=== PATIENT | male | born 1990 | race Caucasian/White ===

== ENCOUNTER 2018-07-07 21:06 | Emergency (ER) | payer BC ==
[2018-07-07] MEDS ORDERED: Diph,Pert(Acell),Tet Vac 0.5 ML SYR IM ONE (21:32)
[2018-07-07] MEDS ORDERED: AMOXICILLIN/POTASSIUM CLAV 875MG/125MG TABLET PO ONE (21:32)
--- NOTE | 2018-07-07 21:34 | Emergency Department Record ---
History of Present Illness - General Chief Complaint: Animal Bite Stated Complaint: RT HAND PAIN Time Seen by Provider: 07/07/18 21:28 Source: Patient Mode of Arrival: Ambulatory Limitations: No limitations - History of Present Illness Initial Comments: 28 yo male presents to ED for evaluation of swelling and pain to the dorsum of the right hand. Patient reports that his dog bite him on the hand approximately 48 hours ago, significant other placed steri-strip over the puncture wound of the hand. Patient reports increased swelling today, reports mild erythema, denies fevers, chills, or systemic symptoms. Patient denies health problems at his baseline, does report that the dog's immunizations are UTD and can be monitored. Patient's last tetanus > 5 years. MD Complaint: Animal bite Onset/Timin -: Hour(s) Right: Hand Animal: Dog Description: Household pet Mechanism: Bite Pain Description: Dull Context: Playing with animal Associated Symptoms: None - Related Data Patient Tetanus UTD (within 5 yrs): No Previous Rx's Medication Instructions Recorded Amoxicillin/Potassium Clav 1 tab PO BID #19 tab 07/07/18 [Augmentin 875-125 Tablet] Allergies Allergy/AdvReac Type Severity Reaction Status Date / Time chlorpheniramine AdvReac VOMITING Verified 07/07/18 21:17 [From Triaminic Cold and Cough] dextromethorphan AdvReac VOMITING Verified 07/07/18 21:17 [From Triaminic Cold and Cough] pseudoephedrine AdvReac VOMITING Verified 07/07/18 21:17 [From Triaminic Cold and Cough] Review of Systems Constitutional: Denies: Chills, Fever, Malaise, Night sweats Eyes: Denies: Eye discharge, Eye pain ENT: Denies: Congestion, Ear pain, Epistaxis Respiratory: Denies: Cough, Dyspnea Cardiovascular: Denies: Chest pain, Dyspnea on exertion Endocrine: Denies: Fatigue, Heat or cold intolerance Gastrointestinal: Denies: Abdominal pain, Nausea, Vomiting Genitourinary: Denies: Incontinence, Retention Musculoskeletal: Reports: Myalgia. Denies: Arthralgia, Back pain Skin: Reports: Change in color. Denies: Bruising Neurological: Denies: Abnormal gait, Confusion, Headache, Seizure Psychiatric: Denies: Anxiety Hematological/Lymphatic: Denies: Anemia, Blood Clots Physical Exam - General General Appearance: Alert, Oriented x3, Cooperative, Mild distress Limitations: No limitations - Head Head exam: Atraumatic, Normocephalic, Normal inspection Head exam detail: negative: Abrasion, Contusion, Nichols's sign, General tenderness, Hematoma, Laceration - Eye Eye exam: Normal appearance. negative: Conjunctival injection, Periorbital swelling, Periorbital tenderness, Scleral icterus - ENT Ear exam: negative: Auricular hematoma, Auricular trauma Nasal Exam: negative: Active bleeding, Discharge, Dried blood, Foreign body Mouth exam: negative: Drooling, Laceration, Muffled voice, Tongue elevation - Neck Neck exam: Normal inspection. negative: Meningismus, Tenderness - Respiratory Respiratory exam: Normal lung sounds bilaterally. negative: Rales, Respiratory distress, Rhonchi, Stridor - Cardiovascular Cardiovascular Exam: Regular rate, Normal rhythm, Normal heart sounds - GI/Abdominal GI/Abdominal exam: Soft. negative: Rebound, Rigid, Tenderness - Rectal Rectal exam: Deferred - exam: Deferred - Extremities Extremities exam: Tenderness, Other (Mild TTP, erythema, and STS over rj dorsum of the right hand measuring approximately 5 cm in diameter.). negative: Calf tenderness, Pedal edema - Back Back exam: Denies: CVA tenderness (R), CVA tenderness (L) - Neurological Neurological exam: Alert, Normal gait, Oriented X3 - Psychiatric Psychiatric exam: Normal affect, Normal mood - Skin Skin exam: Normal color. negative: Abrasion Type of lesion: negative: abrasion Course Vital Signs 07/07/18 21:13 Temperature 98.5 F Pulse Rate [ 63 Pulse Ox Probe] Respiratory 20 Rate Blood Pressure 127/90 [Left Arm] Pulse Ox 97 - Reevaluation(s) Reevaluation #1: 07/07/18 21:41 History and examination appear c/w mild localized cellulitis to the dorsum of the right hand. Will initiate treatment with Augmentin, patient was counseled that his symptoms would not significantly improve for 36-48 hours, however if symptoms worsen, to return to the ED for evaluation. Patient's tetanus was updated in ED as well. Patient appears stable for discharge with outpatient treatment for his symptoms. Disposition Disposition: Discharge Clinical Impression: Dog bite, hand Qualifiers: Encounter type: initial encounter Laterality: right Qualified Code(s): S61.451A - Open bite of right hand, initial encounter Disposition: Home, Self-Care Condition: (2) Stable Instructions: Animal Bite (ED) Additional Instructions: Return to ED if your symptoms worsen or if you have any concerns. Augmentin as directed. Follow-up with your family doctor in 3-5 days as directed. Prescriptions: Amoxicillin/Potassium Clav [Augmentin 875-125 Tablet] 1 tab PO BID #19 tab Forms: Patient Portal Access Time of Disposition: 21:34 Quality - Quality Measures Quality Measures: N/A - Blood Pressure Screening Does Patient Have Any of the Following: No Blood Pressure Classification: Hypertensive Reading Systolic Measurement: 127 Diastolic Measurement: 90 Screening for High Blood Pressure: < First Hypertensive BP, F/U Documented > [[id number]] First Hypertensive Follow-up Interventions: Referral to alternative/primary care provider.
== END 2018-07-07 21:50 | disposition home or self-care (01) ==
LOC: ER 21:06
DX: S61.451A Open bite of right hand, initial encounter (principal); L03.113 Cellulitis of right upper limb; W54.0XXA Bitten by dog, initial encounter; Y92.009 Unspecified place in unspecified non-institutional (private) residence as the place of occurrence of the external cause
CPT/HCPCS: 90715; 96372; 99283